=== PATIENT | male | born 1980 | race Asian ===

== ENCOUNTER 2017-03-15 20:54 | Emergency (ER) | payer OTHER ==
[~2017-03-15] VITALS: Ht 172.7 cm; Wt 54.4 kg
[2017-03-15 21:43] LABS: PLATELET COUNT 248 K/uL (142-355)
[2017-03-15 21:51] LABS: POTASSIUM 3.5 mmol/L (3.6-5.2); SODIUM 139 mmol/L (136-145)
[2017-03-15 22:48] VITALS: BP 119/86; TEMP 98.4
== END 2017-03-15 22:52 | disposition home or self-care (01) ==
LOC: ED 20:54 → EDSEX 20:54 → ED 22:52
PROVIDERS: Family Medicine
DX: R31.9 Hematuria, unspecified (principal)
CPT/HCPCS: 80048; 81000; 85027; 99283

== ENCOUNTER 2017-06-05 14:28 | Emergency (ER) | payer OTHER ==
[~2017-06-05] VITALS: Ht 172.7 cm; Wt 54.0 kg
[2017-06-05 16:18] VITALS: BP 121/75; TEMP 98.5
== END 2017-06-05 16:20 | disposition home or self-care (01) ==
LOC: ED 14:28
DX: J06.9 Acute upper respiratory infection, unspecified (principal)
CPT/HCPCS: 87804; 99282

== ENCOUNTER 2017-06-06 15:18 | Emergency (ER) | payer OTHER ==
[~2017-06-06] VITALS: Ht 172.7 cm; Wt 54.0 kg
[2017-06-06 17:28] LABS: PLATELET COUNT 223 K/uL (142-355)
[2017-06-06 18:15] VITALS: BP 116/71; TEMP 99.8
== END 2017-06-06 18:15 | disposition home or self-care (01) ==
LOC: ED 15:18
DX: J11.1 Influenza due to unidentified influenza virus with other respiratory manifestations (principal)
CPT/HCPCS: 36415; 85027; 87081; 87804; 87880; 99283

== ENCOUNTER 2017-06-27 20:35 | Emergency (ER) | payer OTHER ==
[~2017-06-27] VITALS: Ht 172.7 cm; Wt 54.0 kg
[2017-06-27 22:00] VITALS: BP 134/84; TEMP 97.8
== END 2017-06-27 22:33 | disposition home or self-care (01) ==
LOC: ED 20:35
DX: K59.00 Constipation, unspecified (principal); R51 Headache; R11.0 Nausea
CPT/HCPCS: 99281

== ENCOUNTER 2017-10-08 16:13 | Emergency (ER) | payer OTHER ==
[~2017-10-08] VITALS: Ht 172.7 cm; Wt 59.0 kg
[2017-10-08 16:15] VITALS: TEMP 98.4
[2017-10-08 16:46] LABS: PLATELET COUNT 284 K/uL (142-355)
[2017-10-08 16:55] LABS: POTASSIUM 3.9 mmol/L (3.6-5.2)
[2017-10-08 18:08] VITALS: BP 127/74
== END 2017-10-08 18:08 | disposition home or self-care (01) ==
LOC: ED 16:13
DX: M79.1 Myalgia (principal); R07.89 Other chest pain
CPT/HCPCS: 36415; 80053; 80307; 81000; 84484; 85027; 93005; 99283

== ENCOUNTER 2018-06-20 02:47 | Emergency (ER) | payer OTHER ==
[~2018-06-20] VITALS: Ht 172.7 cm; Wt 56.7 kg
[2018-06-20 03:42] LABS: PLATELET COUNT 264 K/uL (142-355)
[2018-06-20 03:48] LABS: POTASSIUM 3.4 mmol/L (3.6-5.2); SODIUM 140 mmol/L (136-145)
[2018-06-20 04:56] VITALS: BP 120/77; TEMP 98.3
== END 2018-06-20 04:55 | disposition home or self-care (01) ==
LOC: ED 02:47
PROVIDERS: Internal Medicine
DX: M25.512 Pain in left shoulder (principal); R07.89 Other chest pain
CPT/HCPCS: 36415; 80053; 82550; 84484; 85027; 93005; 99283

== ENCOUNTER 2018-11-20 10:53 | Emergency (ER) | payer OTHER ==
[~2018-11-20] VITALS: Ht 172.7 cm; Wt 56.7 kg
[2018-11-20 11:30] LABS: PLATELET COUNT 269 K/uL (142-355)
[2018-11-20 11:40] LABS: POTASSIUM 3.3 mmol/L (3.6-5.2); SODIUM 139 mmol/L (136-145)
[2018-11-20 12:15] VITALS: BP 114/82; TEMP 97.7
== END 2018-11-20 12:15 | disposition home or self-care (01) ==
LOC: ED 10:53
PROVIDERS: Emergency Medicine
DX: K59.09 Other constipation (principal); R07.89 Other chest pain
CPT/HCPCS: 36415; 80053; 82150; 83690; 84484; 85027; 93005; 99284

== ENCOUNTER 2018-12-16 01:10 | Emergency (ER) | payer OTHER ==
[~2018-12-16] VITALS: Ht 172.7 cm; Wt 56.7 kg
[2018-12-16 02:23] LABS: PLATELET COUNT 268 K/uL (142-355)
[2018-12-16 02:41] LABS: POTASSIUM 3.5 mmol/L (3.6-5.2); SODIUM 138 mmol/L (136-145)
[2018-12-16 04:29] VITALS: BP 122/86; TEMP 97.8
== END 2018-12-16 04:35 | disposition home or self-care (01) ==
LOC: ED 01:10
PROVIDERS: Emergency Medicine Emergency Medical Services
DX: R07.89 Other chest pain (principal); F41.9 Anxiety disorder, unspecified
CPT/HCPCS: 36415; 80053; 80307; 82550; 84443; 84484; 85027; 85730; 93005; 96372; 99283; J3410

== ENCOUNTER 2019-06-21 18:53 | Outpatient (CLI) | payer OTHER | END 2019-06-21 18:56 | disposition short-term general hospital (02) | LOC: AMB 18:53 | DX: R07.9 Chest pain, unspecified (principal); R06.02 Shortness of breath; R61 Generalized hyperhidrosis; F41.9 Anxiety disorder, unspecified | CPT/HCPCS: A0425; A0427 ==

== ENCOUNTER 2019-06-21 18:58 | Emergency (ER) | payer OTHER ==
[~2019-06-21] VITALS: Ht 172.7 cm; Wt 505.8 kg
[2019-06-21 19:20] LABS: PLATELET COUNT 310 K/uL (142-355)
[2019-06-21 19:30] LABS: POTASSIUM 3.5 mmol/L (3.6-5.2)
[2019-06-21 21:00] VITALS: BP 128/95; TEMP 97.9
== END 2019-06-21 21:00 | disposition home or self-care (01) ==
LOC: ED 18:58
PROVIDERS: Hospitalist
DX: F41.1 Generalized anxiety disorder (principal)
CPT/HCPCS: 36415; 80048; 85027; 93005; 96365; 96375; 99284; J2060

== ENCOUNTER 2022-05-24 11:22 | Emergency (ER) | payer OTHER ==
[~2022-05-24] VITALS: Ht 170.2 cm; Wt 59.0 kg
[2022-05-24 11:29] VITALS: BP 133/84; TEMP 99.2
== END 2022-05-24 12:40 | disposition home or self-care (01) ==
LOC: ED 11:22
DX: L03.211 Cellulitis of face (principal); M27.3 Alveolitis of jaws
CPT/HCPCS: 99283

== ENCOUNTER 2022-07-19 16:34 | Emergency (ER) | payer OTHER ==
[~2022-07-19] VITALS: Ht 170.2 cm; Wt 59.0 kg
[2022-07-19 16:48] VITALS: BP 118/78; TEMP 101
[2022-07-19 17:48] LABS: PLATELET COUNT 252 K/uL (142-355); POTASSIUM 3.6 mmol/L (3.6-5.2)
== END 2022-07-19 19:10 | disposition home or self-care (01) ==
LOC: ED 16:34
PROVIDERS: Emergency Medicine
DX: B34.9 Viral infection, unspecified (principal); U07.1 COVID-19
CPT/HCPCS: 36415; 80053; 82150; 83690; 85027; 87502; 87635; 96361; 96374; 99283; J2405; U0003

== ENCOUNTER 2022-07-23 13:01 | Emergency (ER) | payer OTHER ==
[~2022-07-23] VITALS: Ht 170.2 cm; Wt 57.2 kg
[2022-07-23 14:29] VITALS: BP 112/81; TEMP 97.9
== END 2022-07-23 14:29 | disposition home or self-care (01) ==
LOC: ED 13:01
DX: J01.80 Other acute sinusitis (principal); F17.210 Nicotine dependence, cigarettes, uncomplicated
CPT/HCPCS: 99283

== ENCOUNTER 2022-10-20 20:43 | Emergency (ER) | payer OTHER ==
[~2022-10-20] VITALS: Ht 170.2 cm; Wt 59.0 kg
[2022-10-20 20:50] VITALS: BP 127/90; TEMP 98.4
== END 2022-10-20 21:45 | disposition home or self-care (01) ==
LOC: ED 20:43
DX: S61.251A Open bite of left index finger without damage to nail, initial encounter (principal); W55.01XA Bitten by cat, initial encounter
CPT/HCPCS: 99282